=== PATIENT | male | born 1970 | race Caucasian/White ===

== ENCOUNTER 2017-10-16 18:53 | Inpatient (IN) | payer MEDICARE, MEDICAID ==
[~2017-10-16] VITALS: Ht 188 cm; Wt 133.1 kg
[~2017-10-16 18:53] MED LIST: DOCU-28 PO; HAL1T PO; LAMO200T2 PO; LORA10TA7 PO; TEG100T PO; TOP25T PO
[2017-10-16 19:50] LABS: BASOPHILS % (AUTO) 0.3 % (0-1); EOSINOPHILS # (AUTO) 0.3 X10'3 (0-0.9); EOSINOPHILS % (AUTO) 2.4 % (0-6); HEMATOCRIT 40.6 % (42.0-52.0); HEMOGLOBIN 14.3 g/dl (14.0-17.9); LYMPHOCYTES # (AUTO) 3.5 X10'3 (1.1-4.8); LYMPHOCYTES % (AUTO) 27.8 % (21-51); MEAN CORPUSCULAR HEMOGLOBIN 31.8 PG (27.0-31.0); MEAN CORPUSCULAR HGB CONC 35.2 % (33.0-36.5); MEAN CORPUSCULAR VOLUME 90.5 FL (78-98); MEAN PLATELET VOLUME 5.7 FL (7.4-10.4); MONOCYTES % (AUTO) 7.8 % (2-12); NEUTROPHILS # (AUTO) 7.8 X10'3 (1.8-7.7); NEUTROPHILS % (AUTO) 61.7 % (42-75); PLATELET COUNT 433 X10'3 (140-440); RED BLOOD COUNT 4.48 X10'6 (4.70-6.10); WHITE BLOOD COUNT 12.6 X10'3 (4.5-11.0)
[2017-10-16 20:01] LABS: PARTIAL THROMBOPLASTIN TIME 29 SECONDS (22-32); PROTHROMBIN TIME 10.3 SECONDS (9.0-12.0)
[2017-10-16 20:04] LABS: ALANINE AMINOTRANSFERASE 32 U/L (12-78); ALBUMIN 4.5 G/DL (3.4-5.0); ALBUMIN/GLOBULIN RATIO 1.2 (1.1-1.5); ALKALINE PHOSPHATASE 82 IU/L (46-116); ANION GAP 12 (8-16); ASPARTATE AMINO TRANSFERASE 21 U/L (10-37); BILIRUBIN,TOTAL 0.7 MG/DL (0.1-1.0); BLOOD UREA NITROGEN 11 MG/DL (7-18); BUN/CREATININE RATIO 10.2 (5.4-32.0); CALCIUM 9.2 MG/DL (8.5-10.1); CHLORIDE 83 MMOL/L (99-107); CREATININE 1.08 MG/DL (0.60-1.10); GLUCOSE 109 MG/DL (70-104); POTASSIUM 3.9 MMOL/L (3.5-5.1); TOTAL CARBON DIOXIDE 24.3 MMOL/L (24-32); TOTAL PROTEIN 8.3 G/DL (6.4-8.2); eGFR 73 ML/MIN
[2017-10-16 20:07] LABS: SODIUM 119 MMOL/L (135-145)
[2017-10-16 22:47] LABS: ALANINE AMINOTRANSFERASE 31 U/L (12-78); ALBUMIN 4.3 G/DL (3.4-5.0); ALBUMIN/GLOBULIN RATIO 1.2 (1.1-1.5); ALKALINE PHOSPHATASE 78 IU/L (46-116); ANION GAP 13 (8-16); ASPARTATE AMINO TRANSFERASE 20 U/L (10-37); BILIRUBIN,TOTAL 0.8 MG/DL (0.1-1.0); BLOOD UREA NITROGEN 11 MG/DL (7-18); BUN/CREATININE RATIO 11.3 (5.4-32.0); CALCIUM 8.9 MG/DL (8.5-10.1); CHLORIDE 82 MMOL/L (99-107); CREATININE 0.97 MG/DL (0.60-1.10); GLUCOSE 112 MG/DL (70-104); OSMOLALITY 240 MOSM/K (280-300); POTASSIUM 3.2 MMOL/L (3.5-5.1); TOTAL CARBON DIOXIDE 23.7 MMOL/L (24-32); TOTAL PROTEIN 7.9 G/DL (6.4-8.2); eGFR 83 ML/MIN
[2017-10-16 22:51] LABS: SODIUM 119 MMOL/L (135-145)
[2017-10-17] MEDS ORDERED: potassium Cl 20 mEq SR tablet PO PRN (01:20)
[2017-10-17] MEDS ORDERED: magnesium hydroxide 30ml (MOM) UD suspension PO PRN (01:20)
[2017-10-17] MEDS ORDERED: acetaminophen 325mg tablet PO PRN (01:20)
[2017-10-17] MEDS ORDERED: potassium Cl 40MEQ/NS 500ml 500 ML IV PRN ×2 (01:20)
[2017-10-17] MEDS ORDERED: mag hydrox/Alum hydrox/simeth 30ml oral suspension PO PRN (01:20)
[2017-10-17] MEDS ORDERED: ondansetron/PF 4mg/2ml inj IV PRN (01:20)
[2017-10-17] MEDS ORDERED: ipratropium/albuterol 3ml nebule NEB PRN (01:30)
[2017-10-17 02:40] VITALS: BP 156/91
[2017-10-17 05:30] VITALS: BP 124/73
[2017-10-17] MEDS: K and/or MAG REPLACEMENT MC SCH (06:58)
[2017-10-17] MEDS: lamoTRIgine 100mg tablet PO SCH ×3 (07:19→20:17)
[2017-10-17] MEDS: loratadine 10mg tablet PO SCH (07:19)
[2017-10-17] MEDS: potassium Cl 20 mEq SR tablet PO PRN ×3 (07:19→17:42)
[2017-10-17] MEDS: topiramate 25mg tablet PO SCH ×2 (07:19→20:15)
[2017-10-17] MEDS: docusate sod 100mg capsule PO SCH ×2 (07:19→20:15)
[2017-10-17] MEDS: haloperidol 1mg tablet PO SCH ×2 (09:01→20:15)
[2017-10-17] MEDS: carBAMazepine 100mg chewable tablet PO SCH ×3 (09:01→20:17)
[2017-10-17] MEDS: sodium chloride 3% IV.soln 500 ML IV SCH ×3 (11:17→21:43)
[2017-10-17 12:00] VITALS: BP 137/84
[2017-10-17] MEDS ORDERED: benzocaine/menthol oral lozeng 1 EACH BOX MM PRN (13:35)
[2017-10-17 15:00] VITALS: BP 111/64
[2017-10-17 19:00] VITALS: BP 130/82
[2017-10-17 20:04] LABS: ALBUMIN 3.9 G/DL (3.4-5.0); ANION GAP 13 (8-16); BLOOD UREA NITROGEN 14 MG/DL (7-18); CALCIUM 8.9 MG/DL (8.5-10.1); CHLORIDE 93 MMOL/L (99-107); CREATININE 1.08 MG/DL (0.60-1.10); GLUCOSE 133 MG/DL (70-104); POTASSIUM 4.2 MMOL/L (3.5-5.1); SODIUM 127 MMOL/L (135-145); TOTAL CARBON DIOXIDE 21.1 MMOL/L (24-32); eGFR 73 ML/MIN
[2017-10-17 23:00] VITALS: BP 109/57
[2017-10-18 03:00] VITALS: BP 115/64
[2017-10-18 05:22] LABS: BASOPHILS % (AUTO) 0.4 % (0-1); EOSINOPHILS # (AUTO) 0.1 X10'3 (0-0.9); EOSINOPHILS % (AUTO) 1.3 % (0-6); HEMATOCRIT 39.1 % (42.0-52.0); HEMOGLOBIN 13.8 g/dl (14.0-17.9); LYMPHOCYTES # (AUTO) 2.1 X10'3 (1.1-4.8); LYMPHOCYTES % (AUTO) 30.6 % (21-51); MEAN CORPUSCULAR HGB CONC 35.4 % (33.0-36.5); MEAN CORPUSCULAR VOLUME 90.5 FL (78-98); MEAN PLATELET VOLUME 6.2 FL (7.4-10.4); MONOCYTES # (AUTO) 0.7 X10'3 (0-0.9); MONOCYTES % (AUTO) 10.5 % (2-12); NEUTROPHILS # (AUTO) 3.9 X10'3 (1.8-7.7); NEUTROPHILS % (AUTO) 57.2 % (42-75); PLATELET COUNT 362 X10'3 (140-440); RED BLOOD COUNT 4.31 X10'6 (4.70-6.10); RED CELL DISTRIBUTION WIDTH 13.4 % (11.5-14.5); WHITE BLOOD COUNT 6.8 X10'3 (4.5-11.0)
[2017-10-18 05:48] LABS: ALBUMIN 3.7 G/DL (3.4-5.0); ANION GAP 10 (8-16); BLOOD UREA NITROGEN 13 MG/DL (7-18); BUN/CREATININE RATIO 14.3 (5.4-32.0); CALCIUM 8.5 MG/DL (8.5-10.1); CHLORIDE 100 MMOL/L (99-107); CHOL/HDL RATIO 3.5 (0.00-4.99); CHOLESTEROL 205 MG/DL (0-200); CREATININE 0.91 MG/DL (0.60-1.10); GLUCOSE 93 MG/DL (70-104); HDL CHOLESTEROL 58 MG/DL (35-60); LDL CHOLESTEROL 123 MG/DL (50-100); POTASSIUM 4.1 MMOL/L (3.5-5.1); SODIUM 133 MMOL/L (135-145); TOTAL CARBON DIOXIDE 23.4 MMOL/L (24-32); TRIGLYCERIDES 71 MG/DL (20-135); eGFR 89 ML/MIN
[2017-10-18] MEDS: K and/or MAG REPLACEMENT MC SCH (08:00)
[2017-10-18] MEDS: docusate sod 100mg capsule PO SCH (08:19)
[2017-10-18] MEDS: topiramate 25mg tablet PO SCH (08:19)
[2017-10-18] MEDS: loratadine 10mg tablet PO SCH (08:19)
[2017-10-18] MEDS: haloperidol 1mg tablet PO SCH (08:21)
[2017-10-18] MEDS: carBAMazepine 100mg chewable tablet PO SCH ×2 (08:21→14:10)
[2017-10-18] MEDS: lamoTRIgine 100mg tablet PO SCH ×2 (08:21→14:10)
[2017-10-18] MEDS: sodium chloride 3% IV.soln 500 ML IV SCH (09:52)
[2017-10-18 11:00] VITALS: BP 130/74
[2017-10-18 15:00] VITALS: BP 122/73
[2017-10-18 17:30] VITALS: BP 129/67
[2017-10-18] MEDS ORDERED: ALBU8.5H8 IH (18:21)
[2017-10-18] MEDS ORDERED: FLUT1AER INH (18:21)
== END 2017-10-18 19:20 | disposition home or self-care (01) | DRG 641 ==
LOC: ER 18:53 → ED HOLD 10-17 01:20 → PCU 3S 10-17 02:10
PROVIDERS: ADMIT Family Medicine; ATTEND Internal Medicine
DX: E87.1 Hypo-osmolality and hyponatremia (principal); E66.9 Obesity, unspecified; E78.00 Pure hypercholesterolemia, unspecified; E87.6 Hypokalemia; R07.89 Other chest pain; G40.909 Epilepsy, unspecified, not intractable, without status epilepticus; G80.9 Cerebral palsy, unspecified; I10 Essential (primary) hypertension; J44.9 Chronic obstructive pulmonary disease, unspecified; F31.9 Bipolar disorder, unspecified; Z79.899 Other long term (current) drug therapy; Z88.1 Allergy status to other antibiotic agents; Z68.37 Body mass index [BMI] 37.0-37.9, adult
CPT/HCPCS: 36415; 71045; 80048; 80053; 80061; 80156; 83930; 84484; 85025; 85610; 85730; 87070; 94640; J3490

== ENCOUNTER 2019-09-02 08:16 | Emergency (ER) | payer MEDICARE, MEDICAID ==
[~2019-09-02] VITALS: Ht 188 cm; Wt 136.9 kg
[~2019-09-02 08:16] MED LIST changes: +ALBU8.5H8 IH; +FLUT1AER INH
[2019-09-02 08:21] VITALS: BP 151/98
[2019-09-02] MEDS ORDERED: bacitracin 15gm ointment TP ONE (08:45)
== END 2019-09-02 08:53 | disposition home or self-care (01) ==
LOC: ER 08:16
DX: S90.812A Abrasion, left foot, initial encounter (principal); L08.89 Other specified local infections of the skin and subcutaneous tissue; G40.909 Epilepsy, unspecified, not intractable, without status epilepticus; E78.00 Pure hypercholesterolemia, unspecified; J44.9 Chronic obstructive pulmonary disease, unspecified; Z88.1 Allergy status to other antibiotic agents; Z79.899 Other long term (current) drug therapy; W22.8XXA Striking against or struck by other objects, initial encounter; Y93.89 Activity, other specified; Y92.89 Other specified places as the place of occurrence of the external cause; Y99.9 Unspecified external cause status
CPT/HCPCS: 99282

== ENCOUNTER 2019-11-19 08:54 | Emergency (ER) | payer MEDICARE, MEDICAID ==
[~2019-11-19] VITALS: Ht 188 cm; Wt 140.9 kg
[2019-11-19 08:56] VITALS: BP 136/104
[2019-11-19] MEDS ORDERED: ibuprofen 200mg tablet PO ONE (09:50)
== END 2019-11-19 10:32 | disposition home or self-care (01) ==
LOC: ER 08:54
DX: M25.562 Pain in left knee (principal); E78.00 Pure hypercholesterolemia, unspecified; J44.9 Chronic obstructive pulmonary disease, unspecified; F31.9 Bipolar disorder, unspecified; Z86.69 Personal history of other diseases of the nervous system and sense organs; Z88.8 Allergy status to other drugs, medicaments and biological substances; Z79.899 Other long term (current) drug therapy
CPT/HCPCS: 73564; 99284

== ENCOUNTER 2021-11-08 19:38 | Emergency (ER) | payer MEDICARE, MEDICAID ==
[~2021-11-08] VITALS: Ht 188 cm; Wt 150.0 kg
[~2021-11-08 19:38] MED LIST changes: +ALBU8.5H17 IH; -ALBU8.5H8 IH
[2021-11-08 20:23] LABS: BASOPHILS # (AUTO) 0.1 X10'3 (0-0.2); BASOPHILS % (AUTO) 0.6 % (0-1); EOSINOPHILS # (AUTO) 0.3 X10'3 (0-0.9); EOSINOPHILS % (AUTO) 2.8 % (0-6); HEMATOCRIT 41.7 % (42.0-52.0); HEMOGLOBIN 14.5 g/dl (14.0-17.9); LYMPHOCYTES # (AUTO) 3.2 X10'3 (1.1-4.8); LYMPHOCYTES % (AUTO) 34.4 % (21-51); MEAN CORPUSCULAR HEMOGLOBIN 31.3 PG (27.0-31.0); MEAN CORPUSCULAR HGB CONC 34.9 g/dL (33.0-36.5); MEAN CORPUSCULAR VOLUME 89.7 FL (78-98); MEAN PLATELET VOLUME 6.6 FL (7.4-10.4); MONOCYTES # (AUTO) 0.8 X10'3 (0-0.9); MONOCYTES % (AUTO) 8.2 % (2-12); PLATELET COUNT 366 X10'3 (140-440); RED BLOOD COUNT 4.65 X10'6 (4.70-6.10); RED CELL DISTRIBUTION WIDTH 12.8 % (11.5-14.5); WHITE BLOOD COUNT 9.2 X10'3 (4.5-11.0)
[2021-11-08] MEDS ORDERED: diazepam 5mg tablet PO ONE (20:30)
[2021-11-08] MEDS ORDERED: meclizine 12.5mg tablet PO ONE (20:30)
[2021-11-08 20:35] LABS: ALANINE AMINOTRANSFERASE 37 U/L (12-78); ALBUMIN 4.2 G/DL (3.4-5.0); ALBUMIN/GLOBULIN RATIO 1.2 (1.1-1.5); ALKALINE PHOSPHATASE 67 IU/L (46-116); ANION GAP 10 (8-16); ASPARTATE AMINO TRANSFERASE 22 U/L (10-37); BILIRUBIN,TOTAL 0.3 MG/DL (0.1-1.0); BLOOD UREA NITROGEN 17 MG/DL (7-18); BUN/CREATININE RATIO 16.2 (5.4-32.0); CALCIUM 8.9 MG/DL (8.5-10.1); CHLORIDE 96 MMOL/L (99-107); CREATININE 1.05 MG/DL (0.60-1.10); GLUCOSE 124 MG/DL (70-104); POTASSIUM 3.7 MMOL/L (3.5-5.1); SODIUM 133 MMOL/L (135-145); TOTAL CARBON DIOXIDE 27.3 MMOL/L (24-32); TOTAL PROTEIN 7.8 G/DL (6.4-8.2); eGFR 74 ML/MIN
[2021-11-08 20:53] LABS: CARBAMAZEPINE (TEGRETOL) 5.9 UG/ML (4.0-12.0)
[2021-11-08 21:44] VITALS: BP 124/80
[2021-11-09] MEDS ORDERED: MECL-159 PO (14:30)
== END 2021-11-08 21:46 | disposition home or self-care (01) ==
LOC: ER 19:39
DX: R42 Dizziness and giddiness (principal); E78.00 Pure hypercholesterolemia, unspecified; J44.9 Chronic obstructive pulmonary disease, unspecified; F31.9 Bipolar disorder, unspecified; Z86.69 Personal history of other diseases of the nervous system and sense organs; Z98.890 Other specified postprocedural states; Z88.1 Allergy status to other antibiotic agents; Z79.899 Other long term (current) drug therapy
CPT/HCPCS: 36415; 71045; 80053; 80156; 83880; 84484; 85025; 93005; 99285; J8597

== ENCOUNTER 2022-10-17 19:03 | Emergency (ER) | payer MEDICAID, MEDICARE ==
[~2022-10-17] VITALS: Ht 188 cm; Wt 145.4 kg
[~2022-10-17 19:03] MED LIST changes: +MECL-159 PO
[2022-10-17 19:10] VITALS: BP 192/94
--- NOTE | 2022-10-17 19:16 | NUR ---
rt ring removed by [facility] using ring cutter. pt tolerated well.
== END 2022-10-17 19:40 | disposition home or self-care (01) ==
LOC: ER 19:03
DX: S60.454A Superficial foreign body of right ring finger, initial encounter (principal); J44.9 Chronic obstructive pulmonary disease, unspecified; E78.00 Pure hypercholesterolemia, unspecified; F31.9 Bipolar disorder, unspecified; Z88.1 Allergy status to other antibiotic agents; Z79.899 Other long term (current) drug therapy; X58.XXXA Exposure to other specified factors, initial encounter; Y93.89 Activity, other specified; Y92.89 Other specified places as the place of occurrence of the external cause; Y99.8 Other external cause status
CPT/HCPCS: 99284